=== PATIENT | female | born 1990 | race Caucasian/White ===

== ENCOUNTER 2017-10-16 22:02 | Emergency (ER) | payer OTHER ==
[~2017-10-16] VITALS: Ht 154.9 cm; Wt 53.5 kg
[~2017-10-16 22:02] MED LIST: PEPCID40 MG PO; PHENERGAN25 MG PO
== END 2017-10-17 05:11 | disposition home or self-care (01) ==
LOC: ER 22:02
DX: O26.892 Other specified pregnancy related conditions, second trimester (principal); R10.2 Pelvic and perineal pain; G43.909 Migraine, unspecified, not intractable, without status migrainosus; Z34.02 Encounter for supervision of normal first pregnancy, second trimester

== ENCOUNTER 2018-03-15 15:43 | Outpatient (CLI) | payer OTHER | END 2018-03-15 18:00 | disposition home or self-care (01) | LOC: NST 15:43 | DX: Z34.83 Encounter for supervision of other normal pregnancy, third trimester (principal) ==

== ENCOUNTER 2021-07-01 10:28 | Outpatient (CLI) | payer OTHER | END 2021-07-01 10:30 | disposition home or self-care (01) | LOC: SONOGRAMA 10:28 | PROVIDERS: ATTEND Internal Medicine Hematology & Oncology | DX: E04.1 Nontoxic single thyroid nodule (principal); E03.8 Other specified hypothyroidism ==

== ENCOUNTER 2021-10-12 10:05 | Outpatient (CLI) | payer OTHER | END 2021-10-12 10:10 | disposition home or self-care (01) | LOC: LAB 10:05 | PROVIDERS: ATTEND Internal Medicine Hematology & Oncology | DX: D50.8 Other iron deficiency anemias (principal); R79.9 Abnormal finding of blood chemistry, unspecified; I10 Essential (primary) hypertension; R74.02 Elevation of levels of lactic acid dehydrogenase [LDH]; K76.89 Other specified diseases of liver; D63.8 Anemia in other chronic diseases classified elsewhere; D55.0 Anemia due to glucose-6-phosphate dehydrogenase [G6PD] deficiency; D51.8 Other vitamin B12 deficiency anemias; E55.9 Vitamin D deficiency, unspecified; D68.8 Other specified coagulation defects; D69.1 Qualitative platelet defects; E53.1 Pyridoxine deficiency; D51.3 Other dietary vitamin B12 deficiency anemia ==

== ENCOUNTER 2022-06-30 01:28 | Emergency (ER) | payer OTHER ==
[~2022-06-30] VITALS: Ht 152.4 cm; Wt 50.8 kg
[2022-06-30] MEDS ORDERED: NEURIN (01:53)
[2022-06-30] MEDS ORDERED: CEPHALEXIN500 MG PO (06:42)
[2022-06-30] MEDS ORDERED: FLUCONAZOLE150 MG PO (06:42)
== END 2022-06-30 07:08 ==
LOC: ER 01:28
DX: R30.0 Dysuria (principal); N89.8 Other specified noninflammatory disorders of vagina

== ENCOUNTER 2022-07-04 22:07 | Emergency (ER) | payer OTHER ==
[~2022-07-04] VITALS: Ht 154.9 cm; Wt 50.8 kg
[~2022-07-04 22:07] MED LIST changes: +CEPHALEXIN500 MG PO; +FLUCONAZOLE150 MG PO; +NEURIN
== END 2022-07-04 23:30 | disposition home or self-care (01) ==
LOC: ER 22:07
DX: B37.49 Other urogenital candidiasis (principal)